=== PATIENT | female | born 1930 | race Caucasian/White ===

== ENCOUNTER 2019-08-12 17:35 | Inpatient (IN) | payer MEDICARE, OTHER ==
[~2019-08-12] VITALS: Ht 162.6 cm; Wt 46.4 kg
[2019-08-12 18:22] LABS: BASOPHILS % (AUTO) 0.3 % (0.0-5.0); HEMATOCRIT 39.5 % (36-48); MEAN CORPUSCULAR HEMOGLOBIN 30.5 pg (27.0-33.0); MEAN CORPUSCULAR HGB CONC 34.2 g/dL (32.0-36.0); MEAN CORPUSCULAR VOLUME 89.4 fL (79-99); NEUTROPHILS % (AUTO) 93.1 % (40.0-77.0); PLATELET COUNT (AUTO) 66 K/uL (130-400); RED BLOOD CELL COUNT(AUTO) 4.42 MIL/uL (4.00-5.50); RED CELL DISTRIBUTION WIDTH 12.4 % (11.0-15.5); WHITE BLOOD COUNT (AUTO) 6.5 K/uL (4.8-10.8)
[2019-08-12 18:29] LABS: APPEARANCE,URINE Clear (CLEAR); BILIRUBIN,URINE Negative (NEGATIVE); COLOR,URINE Dark Yellow (YELLOW); GLUCOSE, URINE (UA) Negative (NEGATIVE); KETONES,URINE 15 mg/dL (NEGATIVE); LEUKOCYTE ESTERASE ,URINE Negative (NEGATIVE); NITRATE,URINE Negative (NEGATIVE); OCCULT BLOOD,URINE Small (NEGATIVE); PH,URINE 5.5 (5.0-8.0); PROTEIN,URINE POS 2+ mg/dL (NEGATIVE)
[2019-08-12 18:33] LABS: CARBON DIOXIDE 26 mmol/L (21-32); CHLORIDE 97 mmol/L (101-111); CREATININE 1.1 mg/dL (0.5-1.5); GLOMERULAR FILTR. RATE CALC 50 mL/min (>60); GLUCOSE,RANDOM 158 mg/dL (70-105); POTASSIUM 3.4 mmol/L (3.5-5.1); SODIUM SERUM 131 mmol/L (136-145); UREA NITROGEN, BLOOD 31 mg/dL (7-18)
[2019-08-12] MEDS ORDERED: ACETAMINOPHEN 325 MG TAB ONE (18:36)
[2019-08-12 18:37] LABS: AMORPHOUS SEDIMENT,UR Few /LPF (None Seen); BACTERIA,URINE Few /HPF (None Seen); MUCUS,URINE Few LPF (None Seen); RBC,URINE None Seen /HPF (0-1); SQUAMOUS EPITHELIAL CELL,UR None Seen /HPF (0-2); WBC,URINE 0-1 /HPF (0-1)
[2019-08-12 18:37] LABS: INR 1.06 (0.85-1.15); PARTIAL THROMBOPLASTIN TIME 27.5 SEC (26.3-35.5); PROTHROMBIN TIME 11.4 SEC (9.6-11.6)
[2019-08-12] MEDS ORDERED: SODIUM CHLORIDE 0.9% 1000ML 2,000 ML IV ONE (18:37)
[2019-08-12] MEDS ORDERED: CEFTRIAXONE SODIUM 1 GM ONE (18:44)
[2019-08-12 18:48] LABS: ALANINE AMINOTRANSFERASE 59 U/L (12-78); ALBUMIN 2.9 g/dL (3.5-5.0); ASPARTATE AMINOTRANSFERASE 103 U/L (10-37); BILIRUBIN,TOTAL 0.7 mg/dL (0.2-1.0); MYOGLOBIN 191 ng/mL (10-92); TOTAL PROTEIN, SERUM 6.4 g/dL (6.0-8.3); TROPONIN I < 0.04 ng/mL (0.00-0.06)
[2019-08-12 18:50] LABS: CREATINE KINASE, TOTAL 419 U/L (21-232)
[2019-08-12 19:38] LABS: BAND NEUTROPHILS % (MANUAL) 27 % (0-2); MONOCYTES % (MANUAL) 6 % (2-9); SEGMENTED NEUTROPHILS % 67 % (40-70)
[2019-08-12 19:39] LABS: MAN.DIFF COMMENT-IMPRESSION MANUAL DIFFERENTIAL; PLATELET MORPHOLOGY COMMENT DECREASED
[2019-08-12] MEDS ORDERED: ONDANSETRON HCL 4 MG/2 ML VIAL IV PRN (20:30)
[2019-08-12] MEDS ORDERED: ACETAMINOPHEN 325 MG TAB PO PRN (20:30)
[2019-08-12] MEDS ORDERED: GUAIFENESIN-DM 200/20 MG 10 ML PO PRN (20:30)
[2019-08-12] MEDS ORDERED: POTASSIUM CHLORIDE 10% ELIXIR 20 MEQ/15 ML UDCUP PO PRN (21:00)
[2019-08-12] MEDS ORDERED: POTASSIUM CHLORIDE 20MEQ/100ML 100 ML IV PRN (21:00)
[2019-08-12] MEDS ORDERED: LIDOCAINE HCL-MPF 1% 2ML VIAL IV PRN (21:00)
[2019-08-13] VITALS (7 sets, daily range): BP systolic 89–133; BP diastolic 52–70
[2019-08-13] MEDS ORDERED: RANI150C4 PO (00:52)
[2019-08-13 06:02] LABS: BASOPHILS % (AUTO) 0.4 % (0.0-5.0); HEMATOCRIT 40.3 % (36-48); MEAN CORPUSCULAR HEMOGLOBIN 30.9 pg (27.0-33.0); MONOCYTES % (AUTO) 3.9 % (3.0-13.0); NEUTROPHILS % (AUTO) 93.1 % (40.0-77.0); PLATELET COUNT (AUTO) 49 K/uL (130-400); RED BLOOD CELL COUNT(AUTO) 4.43 MIL/uL (4.00-5.50); RED CELL DISTRIBUTION WIDTH 12.6 % (11.0-15.5); WHITE BLOOD COUNT (AUTO) 5.4 K/uL (4.8-10.8)
[2019-08-13 06:25] LABS: CREATINE KINASE, TOTAL 274 U/L (21-232); MYOGLOBIN 156 ng/mL (10-92); TROPONIN I < 0.04 ng/mL (0.00-0.06)
[2019-08-13 06:44] LABS: ALBUMIN 2.4 g/dL (3.5-5.0); BILIRUBIN,DIRECT 0.3 mg/dL (0.0-0.3); BILIRUBIN,TOTAL 0.8 mg/dL (0.2-1.0); CREATININE 0.8 mg/dL (0.5-1.5); MAGNESIUM 2.2 mg/dL (1.80-2.40); POTASSIUM 3.2 mmol/L (3.5-5.1); TOTAL PROTEIN, SERUM 5.8 g/dL (6.0-8.3)
--- NOTE | 2019-08-13 07:30 | NUR ---
ASSESSMENT ENCOUNTERED PT A&OX2 BUT WHEN ATTEMPTING TO ESTABLISH TIME, PT STATED SHE DOES NOT FOLLOW CURRENT EVENTS, NEWS, POLITICS NOR KEEP TRACK OF TIME, DAUGHTER TAMRA CONFIRMED AND STATED THAT IS HER NORMAL BEHAVIOR, PT IS CALM COOPERATIVE AND DOES NOT APPEAR TO BE IN ANY DISTRESS NOR ANY NEURO DEFICIT PRESENT. PT IS ABLE TO TOLERATE FOODS, FLUIDS AND MEDICATION WITH NO THROAT CLEARING OR COUGH. CALL LIGHT WITHIN REACH, BED ALARM ACTIVATED.
[2019-08-13] MEDS: POTASSIUM CHLORIDE 20 MEQ ERTAB PO PRN ×2 (07:40→17:00)
[2019-08-13] MEDS: FAMOTIDINE/PF 20 MG/2 ML VIAL IV SCH (07:40)
[2019-08-13] MEDS: SODIUM CHLORIDE 0.9% 1000ML 1,000 ML IV SCH (19:45)
[2019-08-13] MEDS: DEXTROSE 5 %-0.45 % NACL 1,000 ML IV SCH (22:30)
[2019-08-14] MEDS: ACETAMINOPHEN 325 MG TAB PO PRN (00:36)
[2019-08-14 03:42] VITALS: BP 88/53
[2019-08-14 06:52] LABS: BASOPHILS % (AUTO) 0.5 % (0.0-5.0); HEMATOCRIT 37.9 % (36-48); LYMPHOCYTES % (AUTO) 2.1 % (21.0-51.0); MEAN CORPUSCULAR HEMOGLOBIN 30.6 pg (27.0-33.0); MEAN CORPUSCULAR HGB CONC 34.8 g/dL (32.0-36.0); MEAN CORPUSCULAR VOLUME 87.7 fL (79-99); MONOCYTES % (AUTO) 1.8 % (3.0-13.0); NEUTROPHILS % (AUTO) 93.8 % (40.0-77.0); PLATELET COUNT (AUTO) 25 K/uL (130-400); RED BLOOD CELL COUNT(AUTO) 4.32 MIL/uL (4.00-5.50); RED CELL DISTRIBUTION WIDTH 12.6 % (11.0-15.5); WHITE BLOOD COUNT (AUTO) 5.7 K/uL (4.8-10.8)
[2019-08-14 07:14] LABS: POTASSIUM 3.9 mmol/L (3.5-5.1); THYROID STIMULATING HORMONE 1.21 uIU/mL (0.36-3.74)
[2019-08-14 07:35] LABS: CREATININE 1.2 mg/dL (0.5-1.5)
[2019-08-14] MEDS: FAMOTIDINE/PF 20 MG/2 ML VIAL IV SCH (09:00)
[2019-08-14 09:14] VITALS: BP 89/56
[2019-08-14] MEDS: DEXTROSE 5 %-0.45 % NACL 1,000 ML IV SCH ×2 (10:26→15:15)
[2019-08-14 11:30] VITALS: BP 119/60
[2019-08-14 15:30] VITALS: BP 115/76
--- NOTE | 2019-08-14 16:25 | NUR ---
D/C PLAN CM spoke to daughter named Valentina regarding d/c planning. Reports pt is [place] from [place]. [facility] pt is ind. with ADL's and lives alone while in [place]. [facility] pt has support from [facility]. Daughter reports she is making arrangements for nursing home housing in [place]. [facility] plan is to home and will be making arrangements for pt to return to [place] to live in nursing home housing or will have pt live with her. Reports pt does not use any DME. No needs verbalized or identified. CM to f/u. Addendum: 08/14/19 at 1628 by ROSA VELASCO CM Amended: Links added.
[2019-08-14] MEDS: SODIUM CHLORIDE 0.9% 1000ML 1,000 ML IV SCH (17:20)
[2019-08-14 19:42] VITALS: BP 135/76
[2019-08-14] MEDS ORDERED: SODIUM CHLORIDE 0.9% 500ML 500 ML IV ONE (20:15)
[2019-08-14 20:55] LABS: MEAN CORPUSCULAR HEMOGLOBIN 30.3 pg (27.0-33.0); MEAN CORPUSCULAR HGB CONC 34.5 g/dL (32.0-36.0); MEAN CORPUSCULAR VOLUME 87.7 fL (79-99); PLATELET COUNT (AUTO) 19 K/uL (130-400); RED BLOOD CELL COUNT(AUTO) 4.56 MIL/uL (4.00-5.50); RED CELL DISTRIBUTION WIDTH 13.2 % (11.0-15.5); WHITE BLOOD COUNT (AUTO) 7.5 K/uL (4.8-10.8)
[2019-08-14 21:17] LABS: BAND NEUTROPHILS % (MANUAL) 52 % (0-2); MAN.DIFF COMMENT-IMPRESSION MANUAL DIFFERENTIAL; METAMYELOCYTES % 8 % (0-0); MONOCYTES % (MANUAL) 1 % (2-9); MYELOCYTES % 1 % (0-0); SEGMENTED NEUTROPHILS % 38 % (40-70)
[2019-08-14 23:45] VITALS: BP 115/61
[2019-08-15] MEDS: DEXTROSE 5 %-0.45 % NACL 1,000 ML IV SCH ×4 (00:12→23:52)
[2019-08-15 03:39] VITALS: BP 124/73
[2019-08-15 06:10] LABS: ALBUMIN 1.9 g/dL (3.5-5.0); BILIRUBIN,TOTAL 2.3 mg/dL (0.2-1.0); CREATININE 1.4 mg/dL (0.5-1.5); TOTAL PROTEIN, SERUM 4.9 g/dL (6.0-8.3)
[2019-08-15 07:00] VITALS: BP 142/76
--- NOTE | 2019-08-15 07:20 | NUR ---
AM ROUNDS PATIENT IS AWAKE AND ORIENTED TO PERSON. SLOW TO RESPOND. APPEARS RESTLESS AND WEAK. UNABLE TO VERBALIZE FEELINGS. CURRENTLY ON ISOLATION PENDING COVID19 RESULTS. HAS D5 1/2 NS INFUSING AT 100ML/HR TO LEFT FOREARM 22G.
[2019-08-15] MEDS: FAMOTIDINE/PF 20 MG/2 ML VIAL IV SCH (08:32)
[2019-08-15] MEDS: DOXYCYCLINE 100MG+NS 250ML 250 ML IV SCH ×2 (09:36→19:56)
[2019-08-15] MEDS: CEFTRIAXONE SODIUM 1 GM IVP SCH ×2 (09:36→19:56)
[2019-08-15 11:00] VITALS: BP 129/89
[2019-08-15] MEDS: ACETAMINOPHEN 325 MG TAB PO PRN ×2 (13:04→23:53)
[2019-08-15] MEDS: SODIUM CHLORIDE 0.9% 1000ML 1,000 ML IV SCH (14:38)
--- NOTE | 2019-08-15 15:00 | NUR ---
TACHYCARDIA TELEMETRY REPORTED PATIENT IS SUSTAINING HR ST 140'S. REPORTED EVENT TO DR OCNROY. CURRENT VITALS ARE 134/54, 146, 99.3 TEMP, O2 91 % ROOM AIR. MD ORDERS FOLLOWS NS BOLUS 500ML AND REASSESS VITALS POST BOLUS, INSERT F/C- 350ML OF CONCENTRATED URINE POST QUINTERO INSERTION DOCUMENTED.
--- NOTE | 2019-08-15 15:30 | NUR ---
FAMILY UPDATE SPOKE TO DAUGHTER TAMRA LEMOS OVER THE PHONE. UPDATED HER ON PATIENT STATUS.
[2019-08-15 16:03] VITALS: BP 114/55
[2019-08-15] MEDS ORDERED: SODIUM CHLORIDE 0.9% 1000ML 1,000 ML IV ONE (16:30)
[2019-08-15 19:28] VITALS: BP 126/61
--- NOTE | 2019-08-15 23:30 | NUR ---
hospitalist PRINCESS SY PAGED AT THIS TIME DUE TO TACHYCARDIA HR 140-150 BP115/60, NO FEVER. PT DOES LOOK IN SOME DISCOMFORT AND OFFERED TYLENOL BUT WOULD NOT ATTEMPT TO DRINK SO TYLENOL HELD
[2019-08-15 23:43] VITALS: BP 115/60
[2019-08-16] VITALS (10 sets, daily range): BP systolic 79–142; BP diastolic 45–80
--- NOTE | 2019-08-16 | NUR ---
HOSPITALIST PRINCESS RETURNED CALL NEW ORDERS RECEIVED AT THIS TIME AND WILL BE CARRIED OUT.
[2019-08-16] MEDS ORDERED: SODIUM CHLORIDE 0.9% 250 ML IV ONE ×2 (00:07→00:15)
[2019-08-16] MEDS ORDERED: KETOROLAC TROMETHAMINE 15MG/ML ONE (00:07)
[2019-08-16] MEDS ORDERED: KETOROLAC TROMETHAMINE 15MG/ML IV SCH (00:15)
--- NOTE | 2019-08-16 00:15 | NUR ---
MEDS 15MG IV TORADOL GIVEN AND 250 NS BOLUS STARTED. WILL CONTINUE TO MONITOR. HEALTHCARE CUSTOMER SERVICE CALL AND HR INCREASED TO 160-170.
--- NOTE | 2019-08-16 00:33 | NUR ---
STATUS PT SEEMS SLIGHTLY MORE COMFORTABLE AND HR 130'S SINUS TACHYCARDIA WITH PVC'S
--- NOTE | 2019-08-16 00:42 | NUR ---
HOSPITALIST PRINCESS SUPERVISORY AIR INTERCEPT CONTROLLER AT BEDSIDE UPDATED ON STATUS NEW ORDER RECEIVED FOR ABG. WILL CONTINUE TO MONITOR.
[2019-08-16 01:14] LABS: ABG BASE EXCESS -13.3 mmol/L (-2.0-3.0); ABG HCO3 8.7 mmol/L (21.0-28.0); ABG OXYGEN SATURATION 94.7 % (95.0-99.0); ABG PCO2 16 mmHg (32-45)
[2019-08-16] MEDS ORDERED: SODIUM BICARB 50MEQ 50ML VIAL ONE ×2 (01:43→02:07)
[2019-08-16] MEDS ORDERED: SODIUM BICARB 50MEQ 50ML VIAL IV ONE (01:45)
--- NOTE | 2019-08-16 02:00 | NUR ---
CRITICAL CARE DR. ELIZABETH NOTIFIED OF CONSULT AND ABG RESULTS. NEW ORDERS RECEIVED AND WILL BE CARRIED OUT.
[2019-08-16] MEDS ORDERED: DEXTROSE 5%-WATER 1,000 ML IV ONE (02:07)
[2019-08-16] MEDS ORDERED: SODIUM BICARB 8.4% 50ML SYRING 150 MEQ in DEXTROSE 5%-WATER 1,000 ML IV SCH (02:15)
--- NOTE | 2019-08-16 02:30 | NUR ---
TRANSFER PT TRANSFERRED TO ICU ROOM 218 VIA BED AT THIS TIME. REPORT GIVEN TO KANA UNDERWOOD PRIOR TO TRANSFER. PT WAS GIVEN 1 AMP SODIUM BICARB AND STARTED ON D5W WITH 150MEQ OF SODIUM BICARB AT 100ML/HR.
[2019-08-16 05:50] LABS: BASOPHILS % (AUTO) 0.2 % (0.0-5.0); EOSINOPHILS % (AUTO) 0.2 % (0.0-8.0); HEMATOCRIT 49.2 % (36-48); LYMPHOCYTES % (AUTO) 7.1 % (21.0-51.0); MEAN CORPUSCULAR HEMOGLOBIN 30.7 pg (27.0-33.0); MEAN CORPUSCULAR HGB CONC 34.1 g/dL (32.0-36.0); MEAN CORPUSCULAR VOLUME 89.9 fL (79-99); MONOCYTES % (AUTO) 2.2 % (3.0-13.0); NEUTROPHILS % (AUTO) 84.3 % (40.0-77.0); NUCLEATED RED BLOOD CELLS 0.2 % (0.0-0.19); RED BLOOD CELL COUNT(AUTO) 5.47 MIL/uL (4.00-5.50); RED CELL DISTRIBUTION WIDTH 14.1 % (11.0-15.5); WHITE BLOOD COUNT (AUTO) 16.1 K/uL (4.8-10.8)
[2019-08-16 06:07] LABS: PLATELET COUNT (AUTO) 10 K/uL (130-400)
[2019-08-16 06:33] LABS: ALBUMIN 1.7 g/dL (3.5-5.0); BILIRUBIN,TOTAL 3.6 mg/dL (0.2-1.0); PHOSPHORUS 2.4 mg/dL (2.5-4.9); POTASSIUM 3.4 mmol/L (3.5-5.1); THYROID STIMULATING HORMONE 0.74 uIU/mL (0.36-3.74); TOTAL PROTEIN, SERUM 4.6 g/dL (6.0-8.3)
[2019-08-16 06:43] LABS: CRP QUANTITATIVE 192.8 mg/L (0.00-9.0)
[2019-08-16] MEDS ORDERED: PHENYLEPHRINE HCL 10 MG in SODIUM CHLORIDE 0.9% 250 ML IV PRN (08:15)
[2019-08-16] MEDS ORDERED: MEROPENEM 500 MG VIAL IV SCH (08:15)
[2019-08-16] MEDS ORDERED: VANCOMYCIN PROTOCOL PER PHARMACY IV PRN (08:15)
[2019-08-16] MEDS ORDERED: VANCOMYCIN 1GM+NS 250ML 250 ML IV SCH (08:15)
--- NOTE | 2019-08-16 08:24 | NUR ---
0805 Dr. Vazquez critical care MD called and was made aware of patients deteriorating treatment new orders received. 0824 Spoke with Valentina Johnston daughter of Patient Isha Johnston she would like us to hold off on aggressive treatment and only allow for comfort measures. Dr. Estevez also spoke with her and we are all on board with comfort measures. 0827 Dr. Vazquez called back and made aware of families wishes. Order for morphine 1mg/h.
[2019-08-16] MEDS ORDERED: VANCOMYCIN PROTOCOL PER PHARMACY IV SCH (08:30)
[2019-08-16] MEDS ORDERED: COMPOUND IV MISC 1 EACH IVSOLN MISC PRN (08:30)
[2019-08-16] MEDS ORDERED: ACETAMINOPHEN 325 MG TAB PO PRN (08:45)
[2019-08-16] MEDS ORDERED: DEXAMETHASONE SOD PHOSPHATE 4 MG/ML 1ML VIAL IVP PRN (08:45)
[2019-08-16] MEDS ORDERED: PHARMACY COMMUNICATION MISC SCH (08:45)
[2019-08-16] MEDS ORDERED: LORAZEPAM 2 MG/ML 1 ML VIAL IVP PRN (08:45)
[2019-08-16] MEDS ORDERED: ACETAMINOPHEN 650 MG SUPPOSITORY RC PRN (08:45)
[2019-08-16] MEDS ORDERED: MORPHINE-NS 50 MG/50 ML 50 ML IV PRN (08:45)
[2019-08-16] MEDS ORDERED: ONDANSETRON HCL 4 MG/2 ML VIAL IVP PRN (08:45)
[2019-08-16] MEDS ORDERED: SCOPOLAMINE HYDROBROMIDE 1 EACH ADH..PATCH TD SCH (08:45)
[2019-08-16] MEDS ORDERED: ARTIFICAL TEARS SOL 15 ML OU PRN (08:45)
[2019-08-16] MEDS ORDERED: VANCOMYCIN 750MG + NS 250 ML IV SCH ×2 (09:00)
[2019-08-16] MEDS ORDERED: HYDROCORTISONE SOD SUCCINATE 100 MG/2 ML VIAL IV SCH (09:00)
--- NOTE | 2019-08-16 09:24 | NUR ---
Time of 09 Patients cardiac time of Dr. Estevez, Dr. Vazquez made aware. TOSA made aware and is a medical rule out for everything due to age. Family called spoke with Valentina who is the daughter she is aware and requested [facility] home.
--- NOTE | 2019-08-16 10:36 | NUR ---
Johnnie recd call from Kae Zurita, funeral home makeup artist in [place] contacted by daughter. He is making arrangements with home in [place] to sweet pickled fruit maker body. JOHNNIE spoke to Susan, nurse and pt is not ready. Nurse to notify JOHNNIE and I will call Kae back. [phone].
--- NOTE | 2019-08-16 12:06 | NUR ---
Johnnie informed by Rena in security, [place] [facility] [place] Kae Zurita and informed. Per Kae, body to be picked up by [facility] and they will assist with transport to [place]. Reyes Burton Sup, aware
[2019-08-18 16:09] LABS: ROCKY MT SPOTTED FEVER IGG <1:64 (Neg:<1:64)
== END 2019-08-16 09:24 | disposition expired | DRG 871 ==
LOC: EDH 17:35 → EDHIP 20:24 → 2AH 21:04 → 2CH 08-16 01:59
PROVIDERS: ADMIT Internal Medicine; ATTEND Internal Medicine
DX: A41.9 Sepsis, unspecified organism (principal); E43 Unspecified severe protein-calorie malnutrition; A79.9 Rickettsiosis, unspecified; D61.818 Other pancytopenia; N17.9 Acute kidney failure, unspecified; G93.40 Encephalopathy, unspecified; I47.1 Supraventricular tachycardia; Z68.1 Body mass index [BMI] 19.9 or less, adult; R65.20 Severe sepsis without septic shock; Z66 Do not resuscitate; E86.0 Dehydration; R74.8 Abnormal levels of other serum enzymes; D69.6 Thrombocytopenia, unspecified; R53.81 Other malaise; Z51.5 Encounter for palliative care; K57.30 Diverticulosis of large intestine without perforation or abscess without bleeding; E86.1 Hypovolemia; B34.9 Viral infection, unspecified; Z60.2 Problems related to living alone; Z03.818 Encounter for observation for suspected exposure to other biological agents ruled out
CPT/HCPCS: 36415; 36600; 71045; 74176; 80048; 80053; 80076; 81001; 82435; 82550; 82728; 82803; 82947; 83605; 83615; 83735; 83874; 83880; 84100; 84132; 84145; 84295; 84443; 84484; 85018; 85025; 85378; 85610; 85730; 86140; 86757; 87040; 87088; 87633; 87635; 87804; 87807; 93005; G0378; J0696; J1885; J2270; J3370; J3490; J7030; J7040; J7042; J7070